=== PATIENT | female | born 1975 | race Caucasian/White ===

== ENCOUNTER 2023-03-02 10:58 | Outpatient (CLI) | payer OTHER, SELFPAY ==
[2023-03-02 12:20] LABS: Basophils Percent Auto 0.6 % (0.2-1.2); Eosinophils Absolute Auto 0.1 K/mm3 (0-0.3); Eosinophils Percent Auto 1.2 % (0-4.4); Hematocrit 44.8 % (37.0-47.0); Immature Granulocyte Absolute 0.03 K/mm3 (0.00-0.031); Immature Granulocyte Percent A 0.4 % (0-0.5); Lymphocytes Absolute Auto 1.69 K/mm3 (0.9-3.2); Lymphocytes Percent Auto 24.4 % (18.3-44.2); Mean Corpuscular HGB Conc 33.5 g/dl (32-36); Mean Corpuscular Hemoglobin 32.8 pg (26-34); Mean Corpuscular Volume 97.8 fl (80-100); Monocytes Absolute Auto 0.7 K/mm3 (0.1-0.6); Monocytes Percent Auto 9.5 % (2.6-8.5); Neutrophils Absolute Auto 4.4 K/mm3 (1.3-6.7); Neutrophils Percent Auto 63.9 % (45.5-73.1); Platelet Count Result 275 k/mm3 (150-375); Red Blood Count 4.58 M/mm3 (4.2-5.4); Red Cell Distribution Width 12.7 % (11.5-14.5); White Blood Count 6.9 K/mm3 (4.5-10.0)
[2023-03-02 12:27] LABS: Iron 153 ug/dL (37-170)
[2023-03-02 12:32] LABS: Alanine Aminotransferase 24 U/L (6-35); Albumin Level 4.5 g/dL (3.5-5.1); Alkaline Phosphatase 87 U/L (38-126); Anion Gap 9 mmol/L (8-16); Aspartate Amino Transferase 30 U/L (14-36); Bilirubin,Total 0.6 mg/dL (0.2-1.3); Blood Urea Nitrogen 20 mg/dL (7-17); Calcium 9.2 mg/dL (8.4-10.2); Carbon Dioxide 22 mmol/L (22-30); Chloride 105 mmol/L (98-107); Estimated Glomerular Filt Rate > 60; Glucose 92 mg/dL (65-110); Potassium 4.4 mmol/L (3.4-5.0); Sodium 136 mmol/L (137-145)
[2023-03-02 12:37] LABS: Percent Iron Saturation 50 % (20-50)
== END 2023-03-02 10:59 | disposition home or self-care (01) ==
LOC: ANHLAB 11:03
PROVIDERS: PCP Nurse Practitioner Family; Visit Provider Internal Medicine Hematology & Oncology
DX: E83.110 Hereditary hemochromatosis (principal)
CPT/HCPCS: 36415; 80053; 82728; 83540; 83550; 85025

== ENCOUNTER 2023-04-23 18:29 | Emergency (ER) | payer OTHER, SELFPAY ==
[2023-04-23 18:40] VITALS: BP 147/77; PULSE 76; RESP 20; TEMP 36.5; O2SAT 100
--- NOTE | 2023-04-23 19:46 | ED.SKABFB ---
HPI - Skin/Abscess/Foreign Bdy General Chief complaint: Skin/Abscess/Foreign Body Stated complaint: itching everywhere Source: patient and RN notes reviewed History of Present Illness HPI narrative: 48-year-old female presents to urgent care with complaints of itching all over. Patient states this started after she started taking gabapentin that was newly prescribed to her for neuropathy. Patient states she stopped taking the gabapentin and the itching stopped by her neuropathy pain returned. Pt states she couldn't take the pain so she started taking the gabapentin again and her itching is worse than ever. Pt did take a Benadryl earlier today. Denies any fevers, chills, chest pain, SOB, or vomiting. Related Data Home Medications Medication Instructions Recorded Confirmed gabapentin 300 mg capsule mg 04/23/23 hydroxyzine pamoate 25 mg capsule mg 04/23/23 Allergies Allergy/AdvReac Type Severity Reaction Status Date / Time aspirin Allergy Mild Verified 03/18/18 16:38 carbamazepine Allergy Mild ABN.LIVER Verified 03/18/18 16:38 ENZYMES Penicillins Allergy Mild RASH Verified 03/18/18 16:38 Sulfa (Sulfonamide Allergy Mild RASH Verified 03/18/18 16:38 Antibiotics) Review of Systems Review of Systems: CONSTITUTIONAL: Denies fever, chills, or sweats. EYES: Denies visual changes, redness, or discharge. ENT: Denies otalgia and sore throat CARDIOVASCULAR: Denies chest pain, palpitations, or edema. RESPIRATORY: Denies cough or dyspnea. GASTROINTESTINAL: Denies abdominal pain, nausea, vomiting, or diarrhea. GENITOURINARY: Denies dysuria or hematuria. SKIN: itching. MUSCULOSKELETAL: Denies back pain, joint pain, or myalgia. NEUROLOGIC: Denies headache, numbness, or weakness. Pertinent positives per HPI. PMFSH Comments At the time of my signature, I reviewed and agree with the nursing past medical, surgical, social, and family history. There is no relevant family history pertinent to the patient complaint. Exam Narrative: GENERAL: This is a well-nourished, well-developed patient, in no apparent distress. HEAD: normocephalic, atraumatic. EYES: Sclera clear/white. Vision is grossly intact. EARS: External ears normal, auditory canals clear and without drainage, TMs normal without perforation. Hearing grossly intact. NOSE: External nose normal with no obvious nasal discharge, nares without redness, no rhinorrhea. THROAT: Mucous membranes moist, posterior pharynx clear. NECK: Neck supple, non-tender without lymphadenopathy, masses or thyromegaly. CARDIOVASCULAR: Regular rate RESPIRATORY: No respiratory distress SKIN: warm, intact with no suspicious lesions or rash, good texture and turgor. NEURO: awake, alert, and oriented to person, place and time. There were no obvious focal neurologic abnormalities. EXTREMITIES: No clubbing, cyanosis, or edema. No joint tenderness, effusion, or edema noted. BACK: Nontender without deformity or crepitus. No flank tenderness. Course Course Level of Care: Express Care Visit Vital Signs Vital signs: Vital Signs Temperature 97.7 F 04/23/23 18:40 Pulse Rate 76 04/23/23 18:40 Respiratory Rate 20 04/23/23 18:40 Blood Pressure 147/77 H 04/23/23 18:40 Pulse Oximetry 100 04/23/23 18:40 Oxygen Delivery Room Air 04/23/23 18:40 Temperature 97.7 F 04/23/23 18:40 Pulse Rate 76 04/23/23 18:40 Respiratory Rate 20 04/23/23 18:40 Blood Pressure 147/77 H 04/23/23 18:40 Pulse Oximetry 100 04/23/23 18:40 Oxygen Delivery Room Air 04/23/23 18:40 Reviewed MDM - Skin/Abscess/Foreign Bdy MDM Narrative Medical decision making narrative: start taking the steroids as directed. Follow up with your MD about the new allergy to gabapentin. Differential Diagnosis Differential diagnosis: Likely viral exanthem, urticaria and allergic reaction to drug Critical Care Time Critical Care Time Critical Care Time: No Discharge Plan Discharge Clini
== END 2023-04-23 19:56 | disposition home or self-care (01) ==
PROVIDERS: Emergency Provider Nurse Practitioner Family; PCP Nurse Practitioner Family
DX: L29.9 Pruritus, unspecified (principal); T42.6X5A Adverse effect of other antiepileptic and sedative-hypnotic drugs, initial encounter; G62.9 Polyneuropathy, unspecified
CPT/HCPCS: 99213; G0463

== ENCOUNTER 2024-02-07 18:08 | Emergency (ER) | payer OTHER, SELFPAY ==
[2024-02-07 18:16] VITALS: BP 156/76; PULSE 70; RESP 20; TEMP 36.4; O2SAT 100
--- NOTE | 2024-02-07 18:34 | ED.DENTAL ---
HPI - Dental/Oral General Chief complaint: Dental/Oral Stated complaint: Toothache Time Seen by Provider: 02/07/24 18:28 Source: patient and RN notes reviewed Mode of arrival: ambulatory Limitations: no limitations History of Present Illness HPI Narrative: Patient presents today complaining of left lower dental pain times 4-5 days. States this tooth has been broken for the last couple of months. Currently rates her pain 10/10 and has been taking Tylenol and ibuprofen without much relief. She does have a dentist appointment set for March 05. Related Data Home Medications Medication Instructions Recorded Confirmed gabapentin 300 mg capsule mg 04/23/23 hydroxyzine pamoate 25 mg capsule mg 04/23/23 clonidine HCl 0.2 mg tablet mg 02/07/24 deutetrabenazine 12 mg tablet mg PO 02/07/24 (Austedo) olanzapine 5 mg tablet mg 02/07/24 pregabalin 100 mg capsule mg 02/07/24 sertraline 100 mg tablet mg 02/07/24 trazodone 300 mg tablet mg 02/07/24 Allergies Allergy/AdvReac Type Severity Reaction Status Date / Time aspirin Allergy Mild Other Verified 02/07/24 18:12 carbamazepine Allergy Mild ABN.LIVER Verified 02/07/24 18:12 ENZYMES Sulfa (Sulfonamide Allergy Mild RASH Verified 02/07/24 18:12 Antibiotics) Review of Systems Review of Systems: CONSTITUTIONAL: Denies body aches, fever, chills, or sweats. EYES: Denies visual changes, redness, or discharge. ENT: Denies rhinorrhea, congestion, sore throat, or otalgia.+ dental pain CARDIOVASCULAR: Denies chest pain, palpitations, or edema. RESPIRATORY: Denies cough or dyspnea. GASTROINTESTINAL: Denies abdominal pain, nausea, vomiting, or diarrhea. GENITOURINARY: Denies dysuria or hematuria. SKIN: Denies rash, itching, or wounds. MUSCULOSKELETAL: Denies back pain, joint pain, or myalgia. NEUROLOGIC: Denies headache, numbness, tingling, or weakness. PSYCH: Denies depression or anxiety. PMFSH Comments At time of signature, I have reviewed and agree with nursing past medical, surgical, social and family history unless otherwise noted. Please see nursing chart for further information. There is no relevant family history pertinent to the presenting complaint Exam Narrative: GENERAL: Well-appearing, well-nourished, and in moderate pain distress. HEAD: Normocephalic, atraumatic. EYES: EOMI. No redness or drainage. Conjunctivae normal. ENT: Mucous membranes pink and moist. No facial swelling noted. Broken tooth 15 and 14. These teeth are black in color with some erythema to the gumline. No obvious periapical abscess. NECK: Normal AROM. CHEST: No respiratory distress. EXTREMITIES: Normal range of motion. No edema. SKIN: Warm, dry, no rash. Capillary refill normal. Normal skin turgor. NEURO: No focal deficits. Alert and oriented x3. Gait steady. PSYCH: Normal affect. No signs of depression or anxiety. Course Course Level of Care: Express Care Visit Vital Signs Vital signs: Vital Signs Temperature 97.6 F 02/07/24 18:16 Pulse Rate 70 02/07/24 18:16 Respiratory Rate 20 02/07/24 18:16 Blood Pressure 156/76 H 02/07/24 18:16 Pulse Oximetry 100 02/07/24 18:16 Oxygen Delivery Room Air 02/07/24 18:16 Temperature 97.6 F 02/07/24 18:16 Pulse Rate 70 02/07/24 18:16 Respiratory Rate 20 02/07/24 18:16 Blood Pressure 156/76 H 02/07/24 18:16 Pulse Oximetry 100 02/07/24 18:16 Oxygen Delivery Room Air 02/07/24 18:16 Reviewed MDM - Dental/Oral MDM Narrative Medical decision making narrative: Patient has a dental fracture that is likely infected. Prescription for amoxicillin sent to pharmacy. Discussed using temporary filling material which may help if this is an open fracture. Anticipatory guidance given Differential Diagnosis Differential diagnosis: Likely gingival abscess, dental caries, toothache, dental abscess and fracture of tooth Critical Care Time Critical Care Time Critical Care Time: No Disc
== END 2024-02-07 18:39 | disposition home or self-care (01) ==
PROVIDERS: Emergency Provider Nurse Practitioner; PCP Nurse Practitioner Family
DX: S02.5XXA Fracture of tooth (traumatic), initial encounter for closed fracture (principal); X58.XXXA Exposure to other specified factors, initial encounter
CPT/HCPCS: 99213; G0463